=== PATIENT | female | born 1990 | race Caucasian/White ===

== ENCOUNTER 2018-05-07 06:13 | Day surgery (SDC) | payer OTHER ==
[2018-04-30 15:59] VITALS: BMI 18.3
--- NOTE | 2018-05-06 11:57 | P.HPOB ---
History of Present Illness H&P Date: 05/06/18 Chief Complaint: Family planning Patient is a 27-year-old female who has completed her family planning and desires permanent sterilization. Risks/benefits/alternatives to a left scopic tubal occlusion with the scopes were explained to the patient in detail and all questions were answered for her prior to proceeding to the operating room. She was well aware of other alternatives to tube ligation were not permanent as well as risks of bleeding/infection/damage to bowel or bladder/ureteral injuries /vascular injuries/nerve damage. Past Medical History Past Medical History: Musculoskeletal Disorder, Skin Disorder Additional Past Medical History / Comment(s): RAYNAUD'S. IBS. HIATAL HERNIA. ECZEMA TO BILAT LEGS History of Any Multi-Drug Resistant Organisms: None Reported Past Surgical History: Adenoidectomy, Tonsillectomy Additional Past Surgical History / Comment(s): COLONOSCOPY Past Anesthesia/Blood Transfusion Reactions: Previous Problems w/ Anesthesia Additional Past Anesthesia/Blood Transfusion Reaction / Comment(s): WOKE UP IN A PANIC ATTACK WHEN T/A OUT Smoking Status: Current every day smoker - Past Family History Mother Family Medical History: No Reported History Medications and Allergies Home Medications Medication Instructions Recorded Confirmed Type EPINEPHrine (Auto Inject) [Epipen] 0.3 mg IM ONCE PRN 04/30/18 04/30/18 History Norgestimate-Ethinyl Estradiol 1 tab PO DAILY 04/30/18 04/30/18 History [Ortho Tri-Cyclen 28 Tablet] Allergies Allergy/AdvReac Type Severity Reaction Status Date / Time amoxicillin Allergy Rash/Hives Verified 04/30/18 15:53 bee venom protein (honey bee) Allergy SEVERE Verified 04/30/18 15:53 SWELLING IN LEG AT STING SITE ciprofloxacin [From Cipro] AdvReac FLU LIKE Verified 04/30/18 15:53 SYMPTOMS Penicillins AdvReac Vomiting Verified 04/30/18 15:53 Exam Osteopathic Statement: *. No significant issues noted on an osteopathic structural exam other than those noted in the History and Physical/Consult. - OBG Physical Exam Breast: both: normal (no masses) Abdomen: bowel sounds normal, no diffuse tenderness, no bruit present, no guarding noted, no hepatomegaly, no splenomegaly, no mass Vulva: both: normal Vagina: normal moisture, no discharge Cervix: no lesion, no discharge Uterus: normal size, normal contour Adnexa: both: normal Anus/Rectum: normal perianal skin, no rectal mass, no hemorrhoids, heme negative
[~2018-05-07 06:13] MED LIST: DEXAMETHASONE SOD PHOSPHATE 10 MG/ML 1 ML VIAL IV ONE; LACTATED RINGERS 1,000 ML IV SCH; LIDOCAINE 1% 20 ML VIAL (10MG/ML) FOR IV START INTRADERMA PRN; MIDAZOLAM 2 MG/2 ML VIAL IV PRN; ONDANSETRON 4 MG/2 ML VIAL IVP ONE; Pre Op ABX Message 1 EACH MISC MISCELLANE ONE; fentaNYL (PF) 50 MCG/ML 2 ML AMP IV PRN
[2018-05-07] MEDS ORDERED: BUPIVACAINE (PF) 0.5% 30 ML VIAL SQ ONE ×2 (07:19)
[2018-05-07] MEDS ORDERED: MIDAZOLAM 2 MG/2 ML VIAL ONE (07:39)
[2018-05-07] MEDS ORDERED: LIDOCAINE 1% INJ 10MG/ML (20 ML MDV) ONE (07:39)
[2018-05-07] MEDS ORDERED: PROPOFOL 10 MG/ML 20 ML VIAL IV ONE (07:39)
[2018-05-07] MEDS ORDERED: KETOROLAC 30 MG/ML 1 ML VIAL ONE (07:39)
[2018-05-07] MEDS ORDERED: fentaNYL (PF) 50 MCG/ML 2 ML AMP ONE (07:39)
[2018-05-07] MEDS ORDERED: SUCCINYLCHOLINE CHLORIDE 100 MG/5 ML SYR IV ONE (07:39)
--- NOTE | 2018-05-07 08:16 | P.OP ---
Date of Procedure: 05/07/18 Preoperative Diagnosis: Family planning Postoperative Diagnosis: Same Procedure(s) Performed: Laparoscopic tubal occlusion Anesthesia: ANGI Surgeon: Jonathan Renae Estimated Blood Loss (ml): 2 Urine output (ml): 10 Pathology: none sent Condition: stable Disposition: same day Operative Findings: Normal female pelvic anatomy Description of Procedure: Patient was taken to the operating suite where general anesthetic was found be adequate. She was prepped and draped in the normal sterile fashion and placed in the dorsal lithotomy position. Initially a speculum was inserted into the vagina and anterior lip of the cervix was identified and grasped with a single- tooth tenaculum. Cervix was then dilated minimally and sounded to 8 cm. Uterine manipulator was then inserted without difficulty and other instruments were removed from the vagina. Red rubber catheter was then used to drain the bladder of urine and once this was removed close were changed and attention was turned to the abdominal portion of procedure. 2 mL of quarter percent Marcaine was then injected periumbilically and through this injected anesthetic a 5 mm skin incision was made. Through this incision under direct visualization with an optical trocar and sleeve the camera was inserted. Once peritoneal placement was assured gas was left fully insufflate the abdomen and patient was then placed in steep Trendelenburg position. Second 8 mm skin incision was then made 3 cm above the pubic symphysis in the midline and 8 mm trocar and sleeve were inserted again under direct visualization. Option observations the pelvis were then noted uterus was then elevated and first the right fallopian tube than the left fallopian tube had a Filshie clip applied 2 cm from uterine cornu. With no bleeding in the mesosalpinx instruments were removed and gas was allowed to expel from the abdomen. 5 deep breaths were provided during this process. 4-0 Vicryl was then used to close incision subcuticularly and another 6 mL of quarter percent Marcaine was injected injected around these incisions. All instruments were removed. Sponge, lap, needle counts were all correct 2. Patient was then taken to the recovery room in stable and satisfactory condition. Plan - Discharge Summary New Discharge Prescriptions: New HYDROcodone/APAP 5-325MG [[place] 5-325] 1 tab PO Q4HR PRN 3 Days #18 tab PRN Reason: Pain Ibuprofen [Motrin] 600 mg PO Q6HR PRN #30 tab PRN Reason: Pain No Action EPINEPHrine (Auto Inject) [Epipen] 0.3 mg IM ONCE PRN PRN Reason: Anaphylaxis Norgestimate-Ethinyl Estradiol [Ortho Tri-Cyclen 28 Tablet] 1 tab PO DAILY Discharge Medication List EPINEPHrine (Auto Inject) [Epipen] 0.3 mg IM ONCE PRN 04/30/18 [History] Norgestimate-Ethinyl Estradiol [Ortho Tri-Cyclen 28 Tablet] 1 tab PO DAILY 04/30 [History] HYDROcodone/APAP 5-325MG [[place] 5-325] 1 tab PO Q4HR PRN 3 Days #18 tab [Rx] Ibuprofen [Motrin] 600 mg PO Q6HR PRN #30 tab 05/07/18 [Rx] Follow up Appointment(s)/Referral(s): Jonathan Renae DO [Doctor of Osteopathic Medicine] - 1 Week Activity/Diet/Wound Care/Special Instructions: No heavy lifting, limit stairs and driving, and pelvic rest. If any high temperatures, heavy bleeding, or severe pain call my office Discharge Disposition: HOME SELF-CARE
[2018-05-07] MEDS: MEPERIDINE 50 MG/ML SYRINGE IVP ONE ×2 (08:28→08:33)
[2018-05-07 08:39] VITALS: TEMP 98
[2018-05-07] MEDS: HYDROmorphone 0.5 MG/0.5 ML SYRINGE IVP ONE ×2 (08:40→08:45)
[2018-05-07 09:49] VITALS: RESP 16
[2018-05-07] MEDS ORDERED: HYDROcodone/APAP 5-325MG 1 EACH TAB PO ONE (10:04)
[2018-05-07] MEDS ORDERED: diphenhydrAMINE 50 MG/ML 1 ML VIAL IVP ONE (10:33)
[2018-05-07 10:49] VITALS: BP 127/83; PULSE 90
== END 2018-05-07 11:16 | disposition home or self-care (01) ==
LOC: OR 06:13
PROVIDERS: ATTEND Obstetrics & Gynecology
DX: Z30.2 Encounter for sterilization (principal); F17.210 Nicotine dependence, cigarettes, uncomplicated; Z88.0 Allergy status to penicillin; Z88.1 Allergy status to other antibiotic agents; Z91.030 Bee allergy status; Z79.899 Other long term (current) drug therapy; Z79.890 Hormone replacement therapy; Z79.3 Long term (current) use of hormonal contraceptives
CPT/HCPCS: 81025; 58671; J2250; J1200; J1100; J2175; J2405; J2001; J3010; J1885; J0330; J2704; J1170

== ENCOUNTER 2018-05-20 23:39 | Emergency (ER) | payer OTHER ==
[2018-05-20 23:53] VITALS: RESP 16
[2018-05-21] MEDS ORDERED: SODIUM CHLORIDE 0.9% 500 ML IV STA (00:37)
[2018-05-21] MEDS ORDERED: KETOROLAC 30 MG/ML 1 ML VIAL IVP STA (00:37)
[2018-05-21] MEDS ORDERED: ONDANSETRON 4 MG/2 ML VIAL IVP STA (00:37)
--- NOTE | 2018-05-21 01:15 | ED ---
General Adult HPI - General Chief complaint: Recheck/Abnormal Lab/Rx Stated complaint: Lower Abd Pain Time Seen by Provider: 05/21/18 00:12 Source: patient Mode of arrival: ambulatory Limitations: no limitations - History of Present Illness Initial comments: 27-year-old female patient presents to the emergency department today for complaints of right lower quadrant abdominal pain. Patient states that she has been having pain since a tubal ligation was performed on 05/07/[address] Renae. Patient states that the pain has worsened over the last couple of days after she noticed a bulging in the lower abdominal incision. Patient states that the pain radiates from her suprapubic region into the right lower quadrant and into her back. Patient states she has been nauseated with this. She denies any fevers but has been chilled. States that she has been having normal bowel movements. Denies any hematuria, dysuria, urinary frequency, urinary urgency. Patient denies any recent rash, shortness breath, chest pain, numbness, tingling, dizziness, weakness, headache, visual changes, or any other complaints. - Related Data Home Medications Medication Instructions Recorded Confirmed EPINEPHrine (Auto Inject) [Epipen] 0.3 mg IM ONCE PRN 04/30/18 04/30/18 Norgestimate-Ethinyl Estradiol 1 tab PO DAILY 04/30/18 05/07/18 [Ortho Tri-Cyclen 28 Tablet] Previous Rx's Medication Instructions Recorded HYDROcodone/APAP 5-325MG [[place] 1 tab PO Q4HR PRN 3 Days #18 tab 05/07/18 5-325] Ibuprofen [Motrin] 600 mg PO Q6HR PRN #30 tab 05/07/18 Allergies Allergy/AdvReac Type Severity Reaction Status Date / Time amoxicillin Allergy Rash/Hives Verified 05/20/18 23:53 bee venom protein (honey bee) Allergy SEVERE Verified 05/20/18 23:53 SWELLING IN LEG AT STING SITE ciprofloxacin [From Cipro] AdvReac FLU LIKE Verified 05/20/18 23:53 SYMPTOMS Penicillins AdvReac Vomiting Verified 05/20/18 23:53 Review of Systems ROS Statement: Those systems with pertinent positive or pertinent negative responses have been documented in the HPI. ROS Other: All systems not noted in ROS Statement are negative. Past Medical History Past Medical History: Musculoskeletal Disorder, Skin Disorder Additional Past Medical History / Comment(s): RAYNAUD'S. IBS. HIATAL HERNIA. ECZEMA TO BILAT LEGS. tubal ligation History of Any Multi-Drug Resistant Organisms: None Reported Past Surgical History: Adenoidectomy, Tonsillectomy Additional Past Surgical History / Comment(s): COLONOSCOPY Past Anesthesia/Blood Transfusion Reactions: Previous Problems w/ Anesthesia Additional Past Anesthesia/Blood Transfusion Reaction / Comment(s): WOKE UP IN A PANIC ATTACK WHEN T/A OUT Past Psychological History: Anxiety Smoking Status: Current every day smoker - Past Family History Mother Family Medical History: No Reported History General Exam Limitations: no limitations General appearance: alert, in no apparent distress, other (This is a well- developed, well-nourished adult female patient in no acute distress. Vital signs upon presentation are temperature 98.4F, pulse 91, respiration 16, blood pressure 117/75, pulse ox 97% on room air.) Eye exam: Present: normal appearance, PERRL, EOMI. Absent: scleral icterus, conjunctival injection, periorbital swelling ENT exam: Present: normal exam, normal oropharynx, mucous membranes moist Respiratory exam: Present: normal lung sounds bilaterally. Absent: respiratory distress, wheezes, rales, rhonchi, stridor Cardiovascular Exam: Present: regular rate, normal rhythm, normal heart sounds. Absent: systolic murmur, diastolic murmur, rubs, gallop, clicks GI/Abdominal exam: Present: soft, tenderness (Right lower quadrant tenderness, suprapubic tenderness), normal bowel sounds, other (Suprapubic and umbilical incisions are well approximated with no evidence of infection. Lower abdominal incision does have some induration.). Absent: distended, guarding, rebound, rigid Neurological exam: Present: alert, oriented X3, CN II-XII intact Psychiatric exam: Present: normal affect, normal mood Skin exam: Present: warm, dry, intact, normal color. Absent: rash Course Vital Signs 05/20/18 05/21/18 23:50 02:44 Temperature 98.4 F 97.9 F Pulse Rate 91 83 Respiratory 16 16 Rate Blood Pressure 117/75 102/53 O2 Sat by Pulse 97 100 Oximetry Medical Decision Making - Medical Decision Making 27-year-old female patient presents the emergency department today for complaints of right lower quadrant abdominal pain, she is status post tubal ligation on 05/08/2018. Physical examination did reveal right lower quadrant tenderness. Patient was concerned of the "bulging" at her incision site. There is mild induration beneath the actual incision which I feel is most likely scar tissue. There is no evidence of hernia or fluid collection. Patient is afebrile this time. Patient is feeling somewhat improved at time of discharge. Computed tomography scan was negative for any acute process. Did discuss findings and results with the patient. She is instructed to follow-up with Dr. Renae for further evaluation as soon as possible. Return parameters discussed in detail. She verbalizes understanding and agrees with this plan. - Lab Data Result diagrams: 05/21/18 01:15 05/21/18 01:15 Lab Results 05/21/18 05/21/18 05/21/18 Range/Units 01:15 01:15 01:15 WBC 10.4 (3.8-10.6) k/uL RBC 5.49 H (3.80-5.40) m/uL Hgb 16.7 H (11.4-16.0) gm/dL Hct 49.0 H (34.0-46.0) % MCV 89.2 (80.0-100.0) fL MCH 30.4 (25.0-35.0) pg MCHC 34.1 (31.0-37.0) g/dL RDW 11.6 (11.5-15.5) % Plt Count 279 (150-450) k/uL Neutrophils % 50 % Lymphocytes % 37 % Monocytes % 8 % Eosinophils % 3 % Basophils % 1 % Neutrophils # 5.1 (1.3-7.7) k/uL Lymphocytes # 3.9 (1.0-4.8) k/uL Monocytes # 0.9 (0-1.0) k/uL Eosinophils # 0.3 (0-0.7) k/uL Basophils # 0.1 (0-0.2) k/uL Sodium 139 (137-145) mmol/L Potassium 4.1 (3.5-5.1) mmol/L Chloride 102 (98-107) mmol/L Carbon Dioxide 27 (22-30) mmol/L Anion Gap 10 mmol/L BUN 14 (7-17) mg/dL Creatinine 0.80 (0.52-1.04) mg/dL Est GFR (CKD-EPI)AfAm >90 (>60 ml/min/1.73 sqM) Est GFR (CKD-EPI)NonAf >90 (>60 ml/min/1.73 sqM) Glucose 94 (74-99) mg/dL Plasma Lactic Acid Adis 0.7 (0.7-2.0) mmol/L Calcium 10.2 (8.4-10.2) mg/dL Total Bilirubin 0.7 (0.2-1.3) mg/dL AST 29 (14-36) U/L ALT 40 (9-52) U/L Alkaline Phosphatase 42 (38-126) U/L Total Protein 7.7 (6.3-8.2) g/dL Albumin 4.6 (3.5-5.0) g/dL Amylase 105 (30-110) U/L Lipase 122 (23-300) U/L Urine Color Urine Appearance (Clear) Urine pH (5.0-8.0) Ur Specific [place] (1.001-1.035) Urine Protein (Negative) Urine Glucose (UA) (Negative) Urine Ketones (Negative) Urine Blood (Negative) Urine Nitrite (Negative) Urine Bilirubin (Negative) Urine Urobilinogen (<2.0) mg/dL Ur Leukocyte Esterase (Negative) 05/21/18 Range/Units 01:15 WBC (3.8-10.6) k/uL RBC (3.80-5.40) m/uL Hgb (11.4-16.0) gm/dL Hct (34.0-46.0) % MCV (80.0-100.0) fL MCH (25.0-35.0) pg MCHC (31.0-37.0) g/dL RDW (11.5-15.5) % Plt Count (150-450) k/uL Neutrophils % % Lymphocytes % % Monocytes % % Eosinophils % % Basophils % % Neutrophils # (1.3-7.7) k/uL Lymphocytes # (1.0-4.8) k/uL Monocytes # (0-1.0) k/uL Eosinophils # (0-0.7) k/uL Basophils # (0-0.2) k/uL Sodium (137-145) mmol/L Potassium (3.5-5.1) mmol/L Chloride (98-107) mmol/L Carbon Dioxide (22-30) mmol/L Anion Gap mmol/L BUN (7-17) mg/dL Creatinine (0.52-1.04) mg/dL Est GFR (CKD-EPI)AfAm (>60 ml/min/1.73 sqM) Est GFR (CKD-EPI)NonAf (>60 ml/min/1.73 sqM) Glucose (74-99) mg/dL Plasma Lactic Acid Adis (0.7-2.0) mmol/L Calcium (8.4-10.2) mg/dL Total Bilirubin (0.2-1.3) mg/dL AST (14-36) U/L ALT (9-52) U/L Alkaline Phosphatase (38-126) U/L Total Protein (6.3-8.2) g/dL Albumin (3.5-5.0) g/dL Amylase (30-110) U/L Lipase (23-300) U/L Urine Color Light Yellow Urine Appearance Clear (Clear) Urine pH 6.0 (5.0-8.0) Ur Specific [place] 1.009 (1.001-1.035) Urine Protein Negative (Negative) Urine Glucose (UA) Negative (Negative) Urine Ketones Negative (Negative) Urine Blood Negative (Negative) Urine Nitrite Negative (Negative) Urine Bilirubin Negative (Negative) Urine Urobilinogen <2.0 (<2.0) mg/dL Ur Leukocyte Esterase Negative (Negative) - Radiology Data Radiology results: report reviewed, image reviewed CT abdomen and pelvis with contrast was obtained. Report was reviewed in its entirety. Impression by Dr. Tirado shows negative computed tomography scan of the abdomen and pelvis. No adverse change compared to old exam. Disposition Clinical Impression: Abdominal pain Disposition: HOME SELF-CARE Condition: Good Instructions: Abdominal Pain (ED) Additional Instructions: Increase fluids. Take home pain medications as directed. Follow-up with Dr. Soto for reevaluation as soon as possible. Contact your surgeon or your primary care physician for further pain medication. Return here immediately for any new, worsening, or concerning symptoms. Is patient prescribed a controlled substance at d/c from ED?: No Referrals: Luis Loving DO [Primary Care Provider] - 1-2 days Jonathan Renae DO [Doctor of Osteopathic Medicine] - 1-2 days Time of Disposition: 02:20
[2018-05-21 01:27] LABS: Appearance,Urine Clear (Clear); Bilirubin,Urine Negative (Negative); Blood,Urine Negative (Negative); Color,Urine Light Yellow; Glucose,Urine (UA) Negative (Negative); Ketones,Urine Negative (Negative); Leukocyte Esterase,Urine Negative (Negative); Nitrite,Urine Negative (Negative); Protein,Urine Negative (Negative); Specific Gravity,Urine 1.009 (1.001-1.035); Urobilinogen,Urine <2.0 mg/dL (<2.0)
[2018-05-21 01:28] LABS: Basophils # (A) 0.1 k/uL (0-0.2); Basophils % (A) 1 %; Eosinophils # (A) 0.3 k/uL (0-0.7); Eosinophils % (A) 3 %; HGB 16.7 gm/dL (11.4-16.0); Lymphocytes # (A) 3.9 k/uL (1.0-4.8); Lymphocytes % (A) 37 %; MCH 30.4 pg (25.0-35.0); MCHC 34.1 g/dL (31.0-37.0); MCV 89.2 fL (80.0-100.0); Monocytes # (A) 0.9 k/uL (0-1.0); Monocytes % (A) 8 %; Neutrophils # (A) 5.1 k/uL (1.3-7.7); Neutrophils % (A) 50 %; Platelet Count 279 k/uL (150-450); RBC 5.49 m/uL (3.80-5.40); RDW 11.6 % (11.5-15.5); WBC 10.4 k/uL (3.8-10.6)
[2018-05-21 01:37] LABS: ALT 40 U/L (9-52); AST 29 U/L (14-36); Albumin 4.6 g/dL (3.5-5.0); Alkaline Phosphatase 42 U/L (38-126); Amylase 105 U/L (30-110); Anion Gap 10 mmol/L; Blood Urea Nitrogen 14 mg/dL (7-17); Calcium 10.2 mg/dL (8.4-10.2); Carbon Dioxide 27 mmol/L (22-30); Chloride 102 mmol/L (98-107); Glucose 94 mg/dL (74-99); Lipase 122 U/L (23-300); Potassium 4.1 mmol/L (3.5-5.1); Sodium 139 mmol/L (137-145); Total Bilirubin 0.7 mg/dL (0.2-1.3); Total Protein 7.7 g/dL (6.3-8.2)
--- NOTE | 2018-05-21 01:44 | CT ---
EXAMINATION TYPE: CT abdomen pelvis w con DATE OF EXAM: 05/21/2018 COMPARISON: 09/18/2014 HISTORY: Prior on 2013, pt s/p tubal ligation 05/07/18, swelling and bulge to incision site as well as right sided abd pain, history of IBS CT DLP: 321.70 mGycm Automated exposure control for dose reduction was used. TECHNIQUE: Helical acquisition of images was performed from the lung bases through the pelvis. CONTRAST: Performed without Oral Contrast and with IV Contrast, patient injected with 100 mL of Isovue 300. FINDINGS: Lung bases are clear. There is no pleural effusion. Heart size is normal. There is no pericardial eff usion. Liver spleen pancreas appear normal. Bile ducts are not dilated. There is no adrenal mass. Kidneys sh ow satisfactory contrast opacification. There is no hydronephrosis. There is no retroperitoneal adeno josh. I see no intestinal wall thickening. There are no dilated loops. There are clips apparently fr om tubal ligation. Uterus is anteverted. There is no free fluid in the pelvis. Bladder distends roscoe hly. The bony structures appear intact. Appendix is not seen. There is no sign of appendicitis. IMPRESSION: NEGATIVE CT SCAN OF THE ABDOMEN AND PELVIS. NO ADVERSE CHANGE COMPARED TO OLD EXAM.
[2018-05-21 02:45] VITALS: BP 102/53; PULSE 83; TEMP 97.9
== END 2018-05-21 02:45 | disposition home or self-care (01) ==
LOC: EC 23:39
DX: R10.31 Right lower quadrant pain (principal); R11.0 Nausea; F17.200 Nicotine dependence, unspecified, uncomplicated; Z79.3 Long term (current) use of hormonal contraceptives; Z88.0 Allergy status to penicillin; Z88.1 Allergy status to other antibiotic agents; Z91.030 Bee allergy status; Z98.51 Tubal ligation status
CPT/HCPCS: 36415; 80053; 82150; 83605; 83690; 85025; 81003; 74177; 99284; 96374; 96375; 96361; J2405; J1885; Q9967

== ENCOUNTER → 2018-07-15 | Outpatient (CLI) | payer OTHER ==
[2018-07-15 17:43] LABS: Basophils # (A) 0.1 k/uL (0-0.2); Basophils % (A) 1 %; Eosinophils # (A) 0.1 k/uL (0-0.7); Eosinophils % (A) 1 %; HCT 50.3 % (34.0-46.0); HGB 15.7 gm/dL (11.4-16.0); Lymphocytes # (A) 2.5 k/uL (1.0-4.8); Lymphocytes % (A) 31 %; MCH 29.2 pg (25.0-35.0); MCHC 31.2 g/dL (31.0-37.0); MCV 93.6 fL (80.0-100.0); Mean Platelet Volume 6.8; Monocytes # (A) 0.5 k/uL (0-1.0); Monocytes % (A) 6 %; Neutrophils # (A) 4.7 k/uL (1.3-7.7); Neutrophils % (A) 59 %; Platelet Count 256 k/uL (150-450); RBC 5.38 m/uL (3.80-5.40); RDW 12.2 % (11.5-15.5); WBC 7.9 k/uL (3.8-10.6)
== END | disposition home or self-care (01) ==
LOC: LABPAT 16:30
PROVIDERS: ATTEND Obstetrics & Gynecology
DX: Z01.812 Encounter for preprocedural laboratory examination (principal)
CPT/HCPCS: 85025

== ENCOUNTER 2018-07-22 06:20 | Day surgery (SDC) | payer OTHER ==
[2018-07-19 14:12] VITALS: BMI 18.0
--- NOTE | 2018-07-21 16:39 | P.HPOB ---
History of Present Illness H&P Date: 07/21/18 Chief Complaint: Pelvic pain following tubal ligation Patient is a 27-year-old female who underwent a laparoscopic tubal occlusion on May 07. Since that time she is had bilateral pelvic pain which is severe nature and burning in nature. She relates that the pain is not gotten any better and that she believes it is the surgical clips are causing the pain. We did discuss the possibility that was not the surgical clips and that removal of the surgical clips may not actually resolve her pain. She is adamant that she undergo surgery to remove the clips will plan diagnostic laparoscopy possible da Yen surgery for evaluation of her pain and removal of Filshie clips. Risks /benefits/alternatives were discussed with patient in detail and all questions were answered for her prior to proceeding to the operating room. An ultrasound was also done that was unremarkable. She also is aware that there is a chance we couldn't up having to open her and do an open procedure. I suspect that this might be able to be done laparoscopically and will only be able to determine how best to proceed once camera is in place. Past Medical History Past Medical History: Musculoskeletal Disorder, Skin Disorder Additional Past Medical History / Comment(s): RAYNAUD'S. IBS. HIATAL HERNIA. ECZEMA TO BILAT LEGS. possible endometriosis History of Any Multi-Drug Resistant Organisms: None Reported Past Surgical History: Adenoidectomy, Tonsillectomy, Tubal Ligation Additional Past Surgical History / Comment(s): COLONOSCOPY Past Anesthesia/Blood Transfusion Reactions: Previous Problems w/ Anesthesia Additional Past Anesthesia/Blood Transfusion Reaction / Comment(s): WOKE UP IN A PANIC ATTACK WHEN T/A OUT Smoking Status: Current every day smoker - Past Family History Mother Family Medical History: No Reported History Medications and Allergies Home Medications Medication Instructions Recorded Confirmed Type HYDROcodone/APAP 5-325MG [[place] 1 each PO Q4-6H PRN 07/19/18 07/19/18 History 5-325] Allergies Allergy/AdvReac Type Severity Reaction Status Date / Time amoxicillin Allergy Rash/Hives Verified 07/19/18 14:07 bee venom protein (honey bee) Allergy SEVERE Verified 07/19/18 14:07 SWELLING IN LEG AT STING SITE ciprofloxacin [From Cipro] AdvReac FLU LIKE Verified 07/19/18 14:07 SYMPTOMS Penicillins AdvReac Vomiting Verified 07/19/18 14:07 Exam Osteopathic Statement: *. No significant issues noted on an osteopathic structural exam other than those noted in the History and Physical/Consult. - OBG Physical Exam Breast: both: normal (no masses) Abdomen: bowel sounds normal, no diffuse tenderness, no bruit present, no guarding noted, no hepatomegaly, no splenomegaly, no mass Vulva: both: normal Vagina: normal moisture, no discharge Cervix: no lesion, no discharge Uterus: normal size, normal contour Adnexa: both: normal Anus/Rectum: normal perianal skin, no rectal mass, no hemorrhoids, heme negative
[~2018-07-22 06:20] MED LIST changes: +HYDROmorphone 0.5 MG/0.5 ML SYRINGE IVP PRN; -LACTATED RINGERS 1,000 ML IV SCH; -LIDOCAINE 1% 20 ML VIAL (10MG/ML) FOR IV START INTRADERMA PRN; +SCOPOLAMINE 1.5MG/72HR PATCH TRANSDERM ONE; -fentaNYL (PF) 50 MCG/ML 2 ML AMP IV PRN
[2018-07-22] MEDS: LACTATED RINGERS 1,000 ML IV SCH ×2 (07:20→07:22)
[2018-07-22 07:24] LABS: Glucose,Whole Blood 82 mg/dL (75-99)
[2018-07-22] MEDS ORDERED: MIDAZOLAM 2 MG/2 ML VIAL IVP ONE (07:32)
[2018-07-22] MEDS ORDERED: fentaNYL (PF) 50 MCG/ML 2 ML AMP ONE (07:36)
[2018-07-22] MEDS ORDERED: LIDOCAINE 1% INJ 10MG/ML (20 ML MDV) ONE (07:36)
[2018-07-22] MEDS ORDERED: KETOROLAC 30 MG/ML 1 ML VIAL ONE (07:36)
[2018-07-22] MEDS ORDERED: SUCCINYLCHOLINE CHLORIDE 100 MG/5 ML SYR IV ONE (07:36)
[2018-07-22] MEDS ORDERED: GLYCOPYRROLATE 0.2 MG/ML 2 ML VIAL ONE (07:36)
[2018-07-22] MEDS ORDERED: MIDAZOLAM 2 MG/2 ML VIAL ONE (07:36)
[2018-07-22] MEDS ORDERED: ROCURONIUM BROMIDE 10 MG/ML 10 ML VIAL IV ONE (07:36)
[2018-07-22] MEDS ORDERED: NEOSTIGMINE 1 MG/ML 10 ML VIAL ONE (07:36)
[2018-07-22] MEDS ORDERED: PROPOFOL 10 MG/ML 20 ML VIAL IV ONE (07:36)
[2018-07-22] MEDS ORDERED: ROPIVACAINE 5 MG/ML 30 ML VIAL MISCELLANE ONE ×2 (08:15→08:25)
--- NOTE | 2018-07-22 08:38 | P.OP ---
Date of Procedure: 07/22/18 Preoperative Diagnosis: Pain following laparoscopic tubal Postoperative Diagnosis: Same with stage I endometriosis Procedure(s) Performed: Diagnostic laparoscopy with removal of Filshie clips and electrofulguration of endometrial implants Anesthesia: ANGI Surgeon: Jonathan Renae Estimated Blood Loss (ml): 2 Urine output (ml): 30 Pathology: other (Filshie clip's with tubal segment) Condition: stable Disposition: same day Operative Findings: Stage I endometriosis is noted with 3-4 superficial implants in the left paraovarian fossa as well as one in the deep cul-de-sac as well as to in the right pelvis along the uterosacral ligament Description of Procedure: Patient was taken to the operating suite where a general anesthetic was found be adequate. She was prepped and draped in the normal sterile fashion placed in dorsal lithotomy position. Initially a speculum was inserted into the vagina and the anterior lip of the cervix was identified and grasped with a single-tooth tenaculum. Cervix was then dilated and a uterine manipulator was inserted. Red rubber catheter was also used to drain the bladder of urine. Once this was accomplished incidents removed from the vagina and gloves were changed. Attention was then turned to the abdominal portion procedure where 1 mL of quarter percent Marcaine was injected periumbilically. Through this injected anesthetic a 5 mm skin incision was made, and through this incision under direct visualization with an optical trocar and sleeve the camera was inserted. Once peritoneal placement was assured gas was left fully insufflate the abdomen and patient was then placed in steep Trendelenburg position. A second port and sleeve were then inserted through a 8 mm skin incision through her old incision midline 3 cm above the pubic symphysis. Observations the pelvis were noted fallopian tubes were noted to be freely mobile and no other findings could be elucidated. There is no inflammation or other gross changes that looked concerning. Therefore third port and sleeve was inserted 10 cm from the umbilicus long same line and through this 1 cm incision a 10 port was placed. Uterus was then elevated and tipped to the left-hand side and the right fallopian tube and Filshie clip were grasped and elevated. Using a 5 mm LigaSure initially cauterization of the proximal and distal areas were performed to occlude the tubes and then using the LigaSure with the cut feature the a proximal incision was made and then a distal incision and then the intervening segment was excised and Filshie clip with tubal segment was removed. In similar fashion the uterus was then tipped to the right side and the left fallopian tube segment and clip were excised in a's similar fashion. Once is accomplished complete investigation of pelvis was done, there were 3 or 4 small endometriosis implants in the left ovarian fossa region which were both OVARY with a J-hook was also one in the deep cul-de-sac on the left-hand side was also infiltrated to other and regional implants were on the uterosacral ligament on the right-hand side which were also electrofulgurated once this was accomplished with no bleeding noted instruments were removed and gas was allowed to expel from the abdomen 5 deep breaths were provided during this process. Ports were then removed and incisions were closed subcu tickly with 4- 0 Vicryl. Once this was completed local anesthetic was injected around these incisions incidents removed from vagina and patient was taken to the recovery room in stable and satisfactory condition. She did tolerate surgery very well. Plan - Discharge Summary New Discharge Prescriptions: New HYDROcodone/APAP 5-325MG [[place] 5-325] 1 tab PO Q4HR PRN #30 tab PRN Reason: Pain Ibuprofen [Motrin] 600 mg PO Q6HR PRN #30 tab PRN Reason: Pain No Action RX: HYDROcodone/APAP 5-325MG [[place] 5-325] 1 each PO Q4-6H PRN PRN Reason: Pain Discharge Medication List RX: HYDROcodone/APAP 5-325MG [[place] 5-325] 1 each PO Q4-6H PRN 07/19/18 [History ] HYDROcodone/APAP 5-325MG [[place] 5-325] 1 tab PO Q4HR PRN #30 tab 07/22/18 [Rx] Ibuprofen [Motrin] 600 mg PO Q6HR PRN #30 tab 07/22/18 [Rx] Follow up Appointment(s)/Referral(s): Jonathan Renae DO [Doctor of Osteopathic Medicine] - 2 Weeks Activity/Diet/Wound Care/Special Instructions: No heavy lifting, limit stairs and driving and pelvic rest. No tub baths for 2 weeks. If any high temperatures, heavy bleeding, severe pain call my office Discharge Disposition: HOME SELF-CARE
[2018-07-22 08:51] VITALS: TEMP 97.5
[2018-07-22 09:02] VITALS: RESP 16
[2018-07-22 10:17] VITALS: BP 119/79; PULSE 63
== END 2018-07-22 10:27 | disposition home or self-care (01) ==
LOC: OR 06:20
PROVIDERS: ATTEND Obstetrics & Gynecology
DX: T83.84XA Pain due to genitourinary prosthetic devices, implants and grafts, initial encounter (principal); N80.1 Endometriosis of ovary; N80.3 Endometriosis of pelvic peritoneum; I73.00 Raynaud's syndrome without gangrene; K58.9 Irritable bowel syndrome, unspecified; K44.9 Diaphragmatic hernia without obstruction or gangrene; F17.210 Nicotine dependence, cigarettes, uncomplicated; Z88.0 Allergy status to penicillin; Z88.1 Allergy status to other antibiotic agents; Z91.030 Bee allergy status
CPT/HCPCS: 81025; 88302; 58670; 58662; J2250; J1100; J2710; J2405; J2001; J3010; J1885; J2795; J0330; J2704